=== PATIENT | male | born 1950 | race Caucasian/White ===

== ENCOUNTER → 2018-06-10 | Outpatient (CLI) | payer MEDICARE ==
--- NOTE | 2018-06-10 16:21 | Diagnostic Imaging Report ---
INDICATION: 50 pack year history of smoking. COMPARISON: None. TECHNIQUE: Routine noncontrast low-dose screening CT of the chest was performed. FINDINGS: Evaluation of the lung tatum is mildly degraded secondary to respiratory motion artifact. There is diffuse moderate air trapping consistent with background of emphysematous disease. No focal consolidation, pleural effusion, nor pneumothorax is identified. 5 x 7 mm micronodule is identified within the medial margins of the right upper lobe (image 59, series 4). No other suspicious pulmonary nodules or masses are identified. Cardiomediastinal structures show normal heart size. There is no large pericardial effusion. 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 There is moderate calcified aortic and coronary atherosclerosis. No pathologically enlarged or morphologically abnormal adenopathy is seen within the mediastinum, sabrina, nor axilla. Bony structures show no acute abnormalities. Included portions of the upper abdomen are unremarkable. IMPRESSION: 1. Single right upper lobe pulmonary micronodule. Given its size, six-month followup is recommended. 2. Background of moderate emphysematous disease. 3. Moderate calcified aortic and coronary atherosclerosis. LungRads category: 3-S Modifiers: As above. Dictated by: Dictated on workstation # [id number]
== END ==
LOC: RAD 12:44
PROVIDERS: ATTEND Family Medicine
DX: J43.9 Emphysema, unspecified (principal); I70.0 Atherosclerosis of aorta; I25.10 Atherosclerotic heart disease of native coronary artery without angina pectoris; R91.1 Solitary pulmonary nodule; F17.210 Nicotine dependence, cigarettes, uncomplicated